=== PATIENT | male | born 1990 | race African-American/Black ===

== ENCOUNTER 2020-09-06 14:49 | Emergency (ER) | payer OTHER ==
[~2020-09-06] VITALS: Ht 198.1 cm; Wt 98.1 kg
[2020-09-06] MEDS ORDERED: NS 1,000 ML IV ONE (15:40)
[2020-09-06 16:30] LABS: BASO % 0.4 % (0.0-1.0); EOS # 0.1 10^3/uL (0.0-0.5); HEMATOCRIT 48.1 % (42.0-52.0); HEMOGLOBIN 16.2 g/dl (13.5-17.5); LYMPH # 0.9 10^3/uL (1.5-5.0); LYMPH % 17.7 % (24.0-44.0); MEAN CORPUSCULAR HEMOGLOBIN 29.2 pg (27.0-33.0); MEAN CORPUSCULAR HGB CONC 33.7 g/dl (32.0-36.5); MEAN CORPUSCULAR VOLUME 86.7 fl (80.0-96.0); MONO # 0.5 10^3/uL (0.0-0.8); MONO % 10.3 % (2.0-8.0); NEUTROPHILS # 3.5 10^3/uL (1.5-8.5); NEUTROPHILS % 70.4 % (36.0-66.0); PLATELET COUNT, AUTOMATED 144 10^3/uL (150-450); RED BLOOD COUNT 5.55 10^6/uL (4.30-6.10)
[2020-09-06 17:07] LABS: ALBUMIN 3.9 GM/DL (3.2-5.2); ALT/SGPT 37 U/L (12-78); AMYLASE 100 U/L (25-115); BILIRUBIN,DIRECT 0.1 MG/DL (0.0-0.2); BILIRUBIN,TOTAL 0.5 MG/DL (0.2-1.0); BLOOD UREA NITROGEN 11 MG/DL (7-18); CALCIUM LEVEL 9.3 MG/DL (8.5-10.1); CARBON DIOXIDE LEVEL 28 MEQ/L (21-32); CHLORIDE LEVEL 104 MEQ/L (98-107); CK-MB VALUE MASS < 1.0 NG/ML (<3.6); CPK CREATINE PHOSPHOKINASE 125 U/L (39-308); GLOMERULAR FILTRATION RATE > 60.0 (>60); GLUCOSE, FASTING 89 MG/DL (70-100); LIPASE 77 U/L (73-393); POTASSIUM SERUM 3.9 MEQ/L (3.5-5.1); SODIUM LEVEL 139 MEQ/L (136-145); TOTAL PROTEIN 7.6 GM/DL (6.4-8.2); TROPONIN I < 0.02 NG/ML (< 0.10)
[2020-09-06 18:42] LABS: CK-MB VALUE MASS < 1.0 NG/ML (<3.6); CPK CREATINE PHOSPHOKINASE 120 U/L (39-308); MB/CK RELATIVE INDEX 0.83 (< OR =4); TROPONIN I < 0.02 NG/ML (< 0.10)
[2020-09-06] MEDS ORDERED: ISOVUE-370 76% 100ML VIAL As Ordered ONE (19:37)
--- NOTE | 2020-09-06 20:07 | REPVR ---
PROCEDURE INFORMATION: Exam: CT Angiography Chest With Contrast Exam date and time: 09/06/2020 7:41 PM Age: 30 years old Clinical indication: Chest pain; Additional info: R/O pe TECHNIQUE: Imaging protocol: Computed tomographic angiography of the chest with contrast. 3D rendering (Not supervised by radiologist): MIP and/or 3D reconstructed images were created by the technologist. Radiation optimization: All CT scans at this facility use at least one of these dose optimization techniques: automated exposure control; mA and/or kV adjustment per patient size (includes targeted exams where dose is matched to clinical indication); or iterative reconstruction. Contrast material: ISOVUE 370; Contrast volume: 75 ml; Contrast route: INTRAVENOUS (IV); COMPARISON: No relevant prior studies available. FINDINGS: Pulmonary arteries: There are no pulmonary emboli. Aorta: There is no aortic dissection or aneurysm. Lungs: Small vague ground-glass parenchymal opacities in the right lower lobe. Findings may represent atelectasis although a early pneumonitis not excluded. Pleural spaces: Unremarkable. No pneumothorax. No pleural effusion. Heart: Unremarkable. No cardiomegaly. No pericardial effusion. Lymph nodes: Unremarkable. No enlarged lymph nodes. Bones/joints: Unremarkable. No acute fracture. Soft tissues: Unremarkable. IMPRESSION: 1. Small vague ground-glass parenchymal opacities in the right lower lobe. Findings may represent atelectasis although a early pneumonitis not excluded. 2. There is no aortic dissection or aneurysm. 3. There are no pulmonary emboli. Electronically signed by: Gera Mirza On 09/06/2020 20:07:34 PM
[2020-09-06] MEDS ORDERED: POTASSIUM CHLORIDE 10 MEQ SR TABLET PO ONE (20:35)
[2020-09-06] MEDS ORDERED: ACETAMINOPHEN 500 MG TAB PO ONE (20:35)
[2020-09-06 20:38] VITALS: BP 139/73
--- NOTE | 2020-09-06 22:17 | ECGEPIP ---
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
--- NOTE | 2020-09-06 22:20 | ECGEPIP ---
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
== END 2020-09-06 21:03 | disposition home or self-care (01) ==
LOC: M ED 14:49
DX: R07.9 Chest pain, unspecified (principal); J98.11 Atelectasis; A07.2 Cryptosporidiosis; R19.7 Diarrhea, unspecified; R11.2 Nausea with vomiting, unspecified; R51.9 Headache, unspecified; Z86.16 Personal history of COVID-19; Z88.1 Allergy status to other antibiotic agents
CPT/HCPCS: 71275; 80048; 80076; 81001; 82150; 82550; 82553; 83690; 84484; 85025; 85379; 87505; 93005; 96360; 99284; Q9967